=== PATIENT | female | born 1985 | race Caucasian/White ===

== ENCOUNTER 2020-05-22 13:34 | Emergency (ER) | payer MEDICARE, OTHER ==
[~2020-05-22] VITALS: Ht 160 cm; Wt 59.0 kg
[2020-05-22] MEDS ORDERED: ZOLOFT50 MG PO (13:48)
[2020-05-22] MEDS ORDERED: ZESTRIL2.5 MG PO (13:49)
[2020-05-22] MEDS ORDERED: PREDNISONE10 MG PO (13:49)
[2020-05-22] MEDS ORDERED: FOLIC ACID1 MG PO (13:49)
[2020-05-22] MEDS ORDERED: METHOTREXA25 MG/1 M7 INJ (13:50)
[2020-05-22] MEDS ORDERED: ZOFRAN4 MG PO (13:51)
[2020-05-22] MEDS ORDERED: TALTZ AUTO80 MG/1 ML SUB-Q (13:51)
[2020-05-22] MEDS ORDERED: PROMETHAZINE HC25 M1 PO (15:32)
--- OUTSIDE RECORDS SUMMARY | 2020-05-22 15:40 | XMS ---
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 Zeke VISIT COUNT (12 MO.) [address] [facility] [facility] ([place]) 2 Aleksander Modi 3 [facility] 1 STEVEN Parada TOTAL 10 NOTE: Visits indicate total known visits. ED/UCC VISIT TRACKING (12 MO.) 05/22/2020 13:35 [facility] [place] TYPE: Emergency COMPLAINT: - WEAKNESS, ANXIETY 05/21/2020 18:07 [facility] [place] TYPE: Emergency DIAGNOSES: - Suicidal ideations - Suicidal Thoughts - panic attack - Major depressive disorder, single episode, unspecified 04/27/2020 13:47 [facility] [place] TYPE: Emergency DIAGNOSES: - Fever, unspecified - fever, light headed - Fever (9 Weeks To 74 Years) 04/22/2020 16:39 [facility] [place] TYPE: Emergency DIAGNOSES: - fever - Cervicalgia - Fever, unspecified - Generalized Body Aches - Fever (9 Weeks To 74 Years) 01/15/2020 20:38 [facility] [place] TYPE: Emergency DIAGNOSES: - Calculus of bile duct without cholangitis or cholecystitis without obstruction - Abdomen Pain - Abdominal Pain 11/09/2019 07:50 [place] TYPE: Emergency DIAGNOSES: - Emesis - Abdominal Pain - Nausea with vomiting, unspecified 10/10/2019 18:15 [facility] [place] TYPE: Emergency DIAGNOSES: - Headache - Headache/Side Pain - Headache (Adult - New Onset Or New Symptoms) - Acute ethmoidal sinusitis, unspecified 09/14/2019 06:03 [place] TYPE: Emergency DIAGNOSES: - Panic disorder [episodic paroxysmal anxiety] - Panic Attack [facility] COMPLAINT: - NOSE DIAGNOSES: 1. Procedure and treatment not carried out due to patient leaving prior to being seen by health care provider 05/28/2019 [facility] COMPLAINT: - N/V DIAGNOSES: 1. Dizziness and giddiness 2. Nausea INPATIENT VISIT TRACKING (12 MO.) No inpatient visits to display in this time frame [email or web address]
== END 2020-05-22 15:47 | disposition home or self-care (01) ==
LOC: ED 13:34 → EDBD 13:35 → ED 15:47
DX: F41.9 Anxiety disorder, unspecified (principal); R11.2 Nausea with vomiting, unspecified; Z88.8 Allergy status to other drugs, medicaments and biological substances; Z79.899 Other long term (current) drug therapy; Z79.52 Long term (current) use of systemic steroids
CPT/HCPCS: 99283

== ENCOUNTER 2022-01-01 06:48 | Day surgery (SDC) | payer MEDICARE, OTHER ==
[~2022-01-01] VITALS: Ht 160 cm; Wt 72.7 kg
[~2022-01-01 06:48] MED LIST: FOLIC ACID1 MG PO; LEXAPRO5 MG; METHOTREXA25 MG/1 M7 INJ; PREDNISONE10 MG PO; PROMETHAZINE HC25 M1 PO; TALTZ AUTO80 MG/1 ML SUB-Q; TREMFYA100 MG/11 SQ; ZESTRIL2.5 MG PO; ZOFRAN4 MG PO; ZOLOFT50 MG PO
--- NOTE | 2022-01-01 07:13 | NUR ---
COVID 19 SWAB DONE TO BOTH NARES AND SENT TO IN HOUSE LAB.
--- NOTE | 2022-01-01 07:24 | NUR ---
ARTHRITIS PAIN GENERALIZED
--- NOTE | 2022-01-01 07:26 | NUR ---
HAS FALLEN A FEW TIMES MCANT FEEL FEET ALWAYS. NO INJURIES.
--- NOTE | 2022-01-01 08:20 | NUR ---
states covid dx december 01 had vomiting s/s no cold symptoms.
--- NOTE | 2022-01-01 13:03 | NUR ---
01/01/22 1303 Preethi Lewis PT ARRIVED FROM PACU. REPORT STATES PT VOIDED "A COUPLE OF TIMES" INCONTINANT DURING PROCEEDURE. PT INITIALLY REPORTS [place], THEN DENIES AND REPORTS NEED TO USE THE RESTROOM, BED KINNEY PLACED. PT DROWSY, BUT RESPONDING TO QUESTIONS APPROPRIATLY. VITALS SIGNS STABLE. 1302 - PT WEANED TO ROOM AIR, MAINTAINING OXGYEN SATURATION ABOVE 94%.
== END 2022-01-01 15:10 | disposition home or self-care (01) ==
LOC: DS 06:48
PROVIDERS: ATTEND Dentist General Practice
PROC: 0CDWXZ2 Extraction of Upper Tooth, All, External Approach (ICD-10-PCS; 2022-01-01)
PROC: 0CDXXZ2 Extraction of Lower Tooth, All, External Approach (ICD-10-PCS; principal; 2022-01-01 09:00)
DX: K02.9 Dental caries, unspecified (principal); K03.81 Cracked tooth; F41.8 Other specified anxiety disorders; I10 Essential (primary) hypertension; L40.50 Arthropathic psoriasis, unspecified; F32.A Depression, unspecified; F84.5 Asperger's syndrome; Z88.8 Allergy status to other drugs, medicaments and biological substances; Z20.822 Contact with and (suspected) exposure to COVID-19
CPT/HCPCS: 36415; 84703; 87502; C9803; J1100; J1885; J2001; J2250; J2405; J2704; J2765; J3010; J7121; U0003